=== PATIENT | male | born 1955 ===

== ENCOUNTER 2017-06-13 09:37 | Day surgery (SDC) | payer MEDICAID ==
[2017-06-13] MEDS ORDERED: LIDOCAINE 2% MDV (20MG/ML) 20ML VIAL IV ONE (09:38)
[2017-06-13] MEDS ORDERED: PROPOFOL 10 MG/ML VIAL IV ONE (09:38)
--- NOTE | 2017-06-16 09:20 | Operative Note ---
DATE OF SURGERY: 06/13/2017 SURGEON: Sandrine Parks MD OPERATION: COLONOSCOPY. INDICATIONS: This is a 62-year-old man with average risk for colorectal cancer who presented for screening colonoscopy. POSTOPERATIVE DIAGNOSES: 1. A 6 mm ascending colon polyp that was removed by cold biopsy forceps. 2. A 3 mm sessile polyp in the sigmoid colon that was removed by cold biopsy forceps. ANESTHESIA: Sedation is per Anesthesia. Pulse oximetry was monitored throughout the procedure to maintain O2 saturation of 90% or greater. Supplemental oxygen was administered via nasal cannula. Cardiac and vital signs were monitored throughout the duration of the procedure, and they were stable. The procedure of colonoscopy and risks and alternatives of the procedure, including the risk of bleeding and perforation, among others, were explained to the patient who voiced understanding and agreed to have the procedure done. Physical examination was performed, and the patient was found stable for sedation. PROCEDURE: The patient was placed in the left lateral position. Sedation was initiated. A digital rectal exam was performed and showed some mild external hemorrhoids with no palpable rectal masses. An Olympus PCF-180AL colonoscope was then inserted into the rectum under direct visualization. It was advanced to the cecum without difficulty. The ileocecal valve and appendiceal orifice were identified and photographed. The colonic mucosa was carefully examined upon introduction of the colonoscope. In the ascending colon was a 6 mm sessile polyp that was noted and was removed by cold snare. The rest of the colonic mucosa appeared normal. The colonoscope was then withdrawn while carefully examining the colonic mucosal surfaces. The cecum, the rest of the ascending colon, transverse colon, and descending colon revealed no other lesions. In the sigmoid colon was a 3 mm sessile polyp that was noted and was removed by cold biopsy forceps. The colonoscope was then withdrawn into the rectum and retroflexion was performed. There were no other lesions noted. The colonoscope was then withdrawn and the procedure was terminated. The patient tolerated the procedure well without any immediate complications. He remained with stable vital signs and was transferred to the recovery room. RECOMMENDATIONS: 1. The patient should continue on a high-fiber diet. 2. The patient is to have a repeat colonoscopy for surveillance in 5 or 10 years depending on the histology of the polyps. Thank you for allowing me to participate in the care of your patient. CC: Ambrocio MEYER
== END 2017-06-13 11:00 | disposition home or self-care (01) ==
LOC: HOP 09:37
PROVIDERS: ATTEND Internal Medicine Gastroenterology
DX: Z12.11 Encounter for screening for malignant neoplasm of colon (principal); D12.2 Benign neoplasm of ascending colon; D12.5 Benign neoplasm of sigmoid colon